=== PATIENT | male | born 1975 | race Caucasian/White ===

== ENCOUNTER 2018-08-23 17:02 | Emergency (ER) | payer OTHER ==
[~2018-08-23 17:02] MED LIST: FLEXERIL PO; IBUPROFEN 800800 M1 PO; IBUPROFEN 800800 MG PO; NOHOMEMEDICATIONS; NORCO 5-325 TA1 EACH PO; PHENERGAN 25 MG25 M1 PO; ULTRAM 50MG TAB50 MG PO; ZOFRAN ODT4 MG PO
[2018-08-23] MEDS ORDERED: LISINOPRIL10 MG PO (19:17)
[2018-08-23] MEDS ORDERED: NEURONTIN800 MG PO (19:18)
[2018-08-23] MEDS ORDERED: VIAGRA25 MG PO (19:19)
== END 2018-08-23 17:29 ==
LOC: M.ERS 17:02
DX: Z53.21 Procedure and treatment not carried out due to patient leaving prior to being seen by health care provider (principal)

== ENCOUNTER 2018-08-23 19:11 | Emergency (ER) | payer OTHER ==
[~2018-08-23] VITALS: Ht 190.5 cm; Wt 97.5 kg
[2018-08-23] MEDS ORDERED: LISINOPRIL10 MG PO (19:17)
[2018-08-23] MEDS ORDERED: NEURONTIN800 MG PO (19:18)
[2018-08-23] MEDS ORDERED: VIAGRA25 MG PO (19:19)
[2018-08-23 20:05] LABS: URINE BLOOD NEGATIVE (Negative); URINE CLARITY CLEAR; URINE COLOR YELLOW; URINE GLUCOSE-RANDOM NEGATIVE (Negative); URINE KETONES NEGATIVE (Negative); URINE LEUKOCYTES-REFLEX NEGATIVE (Negative); URINE NITRITE-REFLEX NEGATIVE (Negative); URINE PROTEIN TRACE (Negative); URINE SPECIFIC GRAVITY >= 1.030 (1.005-1.030); URINE UROBILINOGEN 0.2 E.U./dl (0.2-1.0)
[2018-08-23 20:07] LABS: ICTOTEST (BILI CONFIRMATORY) Negative (Negative); URINE BILIRUBIN 1+ (Negative)
[2018-08-23 20:12] LABS: ABSOLUTE BASOPHILS 0.1 thou/uL (0.0-0.2); ABSOLUTE EOSINOPHILS 0.6 thou/uL (0.0-0.7); ABSOLUTE LYMPHOCYTES 3.3 thou/uL (0.8-5.3); ABSOLUTE MONOCYTES 0.7 thou/uL (0.0-1.2); ABSOLUTE NEUTROPHILS 3.7 thou/uL (1.6-8.1); BASOPHILS 0.9 %; EOSINOPHILS 6.9 %; HEMATOCRIT 39.8 % (42.0-52.0); HEMOGLOBIN 13.7 gm/dL (14.0-18.0); LYMPHOCYTES 39.1 %; MCH 31.9 pg (26.0-34.0); MCHC 34.4 g/dL (28.0-37.0); MCV 92.8 fL (80.0-100.0); MONOCYTES 8.3 %; NUCLEATED RBCS 0 /100WBC; PLATELET COUNT* 182 thou/uL (150-400); POLYS 44.8 %; RBC 4.29 mil/uL (4.50-6.00); RDW-CV 12.8 % (10.5-14.5); WBC 8.3 thou/uL (4.0-11.0)
[2018-08-23 20:19] LABS: CALCIUM 8.2 mg/dL (8.5-10.1); POTASSIUM 4.1 mmol/L (3.5-5.1)
[2018-08-23 20:20] LABS: AMP/METHAMP Negative (Negative); BARBITURATES Negative (Negative); BENZODIAZEPINES POSITIVE (Negative); COCAINE Negative (Negative); METHADONE Negative (Negative); OPIATES Negative (Negative); PCP Negative (Negative); THC Negative (Negative)
[2018-08-23 20:25] LABS: ALBUMIN 3.4 g/dL (3.4-5.0); TOTAL BILIRUBIN 0.5 mg/dL (<0.1-1.0); TOTAL PROTEIN 6.2 g/dL (6.4-8.2)
[2018-08-23 20:37] LABS: SALICYLATE 5.9 mg/dL (2.8-20.0)
[2018-08-23 20:41] LABS: ACETAMINOPHEN < 2 ug/mL (10-30); ALCOHOL < 10 mg/dL (<10)
[2018-08-23 23:55] VITALS: BP 139/86
--- NOTE | 2018-08-24 17:04 | EKG ---
[place] [address] ELECTROCARDIOGRAM REPORT Name: GIL GANDHI Room: [facility]#: [id number] Admission: 08/23/18 Attend Phys: Discharge: 08/23/18 Date of : 75 Report #: [id number] THIS REPORT FOR: //name// [facility] ED Test Date: 2018-08-23 Test Time: 19:11:42 Pat Name: GIL GANDHI Department: Room: Gender: M Security Solutions Engineer: Jazzy SERNA : 1975 Requested By: Petra Pérez Order Number: [id number] MD: Chan Miranda Measurements Intervals [place] Rate: 66 P: 71 VT: 172 QRS: 61 QRSD: 108 T: 34 QT: 439 QTc: 460 Interpretive Statements Sinus rhythm No previous ECG available for comparison Electronically Signed On 08-24-2018 17:04:04 CDT by Chan Miranda [email or web address] <ELECTRONICALLY SIGNED> By: Chan Miranda MD, [facility] 08/24/18 1704 191 10 Chan Miranda MD, FACC /EPI
== END 2018-08-23 23:57 ==
LOC: M.ERS 19:11
PROVIDERS: Personal Emergency Response Attendant
DX: T42.6X2A Poisoning by other antiepileptic and sedative-hypnotic drugs, intentional self-harm, initial encounter (principal); F17.210 Nicotine dependence, cigarettes, uncomplicated; Z88.5 Allergy status to narcotic agent; Z88.6 Allergy status to analgesic agent; Z88.2 Allergy status to sulfonamides; Z88.8 Allergy status to other drugs, medicaments and biological substances; Y92.89 Other specified places as the place of occurrence of the external cause

== ENCOUNTER 2020-02-12 18:44 | Emergency (ER) | payer OTHER ==
[~2020-02-12] VITALS: Ht 188 cm; Wt 104.3 kg
[~2020-02-12 18:44] MED LIST changes: +LISINOPRIL10 MG PO; +NEURONTIN800 MG PO; +VIAGRA25 MG PO
[2020-02-12] MEDS ORDERED: NORCO 10-325 T1 EACH PO (18:54)
[2020-02-12] MEDS ORDERED: TOPROL XL100 MG PO (18:54)
[2020-02-12] MEDS ORDERED: CLONAZEPAM 0.50.5 M1 PO (18:54)
[2020-02-12] MEDS ORDERED: NEURONTIN100 MG PO (18:54)
[2020-02-12] MEDS ORDERED: PROAIR HFA8.5 GM INH (19:56)
[2020-02-12] MEDS ORDERED: PREDNISONE50 MG PO (19:56)
[2020-02-12 20:06] VITALS: BP 124/70
== END 2020-02-12 20:07 ==
LOC: M.ERS 18:44
DX: J06.9 Acute upper respiratory infection, unspecified (principal); Z20.828 Contact with and (suspected) exposure to other viral communicable diseases; I10 Essential (primary) hypertension; F17.210 Nicotine dependence, cigarettes, uncomplicated; Z79.899 Other long term (current) drug therapy; Z88.6 Allergy status to analgesic agent; Z88.5 Allergy status to narcotic agent; Z88.2 Allergy status to sulfonamides; Z88.8 Allergy status to other drugs, medicaments and biological substances